=== PATIENT | female | born 1930 | race Caucasian/White ===

== ENCOUNTER 2018-07-27 09:08 | Inpatient (IN) ==
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
[2018-07-27 09:44] LABS: Bilirubin,Urine Negative (Negative); Blood,Urine Moderate (Negative); Clarity,Urine Clear (Clear); Color,Urine Yellow (Yellow); Glucose,Urine (UA) Normal (Normal); Ketones,Urine Negative (Negative); Leukocyte Esterase,Urine Trace (Negative); Nitrite,Urine Negative (Negative); PH,Urine 5.5 pH Units (5.0-8.0); Protein,Urine Negative (Neg-Trace); Urobilinogen,Urine Normal (Normal)
[2018-07-27 09:55] LABS: Basophils # 0.1 K/mcL (0.0-0.2); Basophils % 0.8 %; Eosinophils # 0.1 K/mcL (0.0-0.6); Eosinophils % 1.1 %; Hematocrit 40.8 % (35.3-44.9); Hemoglobin 13.4 g/dL (11.5-15.4); Immature Granulocytes % 0.3 % (0-4); Mean Corpuscular HGB Conc 32.8 g/dL (31.6-35.5); Mean Corpuscular Hemoglobin 30.5 pg (28.0-33.3); Mean Corpuscular Volume 92.7 fL (83.0-100.0); Mean Platelet Volume 9.7 fL (9.4-12.4); Monocytes # 0.5 K/mcL (0.0-1.3); Monocytes % 8.1 %; Neutrophils # 4.8 K/mcL (1.6-8.9); Platelet Count 169 K/mcL (140-400); Red Cell Distribution Width 12.6 % (11.5-14.5); Segmented Neutrophils % 74.7 %
[2018-07-27 09:57] LABS: Bacteria,Urine Moderate per hpf (None-Few); Mucus,Urine Few (Few); RBC,Urine 0-3 per hpf (0-3); Squamous Epithelial Cell,Urine Many per lpf (None-Few)
[2018-07-27 10:02] LABS: Prothrombin Time 11.1 Seconds (9.4-12.1)
[2018-07-27 10:05] LABS: Activated Partial Thrombo Time 32.3 Seconds (26.0-36.0)
[2018-07-27 10:13] LABS: BUN/Creatinine Ratio 23 (6-26); Blood Urea Nitrogen 18 mg/dL (8-23); Carbon Dioxide 29 mEq/L (23-29); Chloride 104 mEq/L (98-107); Glucose 105 mg/dL (70-105); Osmolality,Calculated 292 (280-300); Potassium 3.9 mEq/L (3.5-5.1); Sodium 140 mEq/L (136-145); eGFR For Non-African Americans > 60 (> 60)
[2018-07-27 10:14] LABS: Troponin I < 0.03 ng/mL (< 0.04)
[2018-07-27] MEDS ORDERED: cefTRIAXone 1,000 MG in Water for inj. (sterile) 20 ML 10 ML IVP ONE (10:41)
[2018-07-27] MEDS ORDERED: Naloxone 0.4 MG/ML INJ IVP PRN (13:11)
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
[2018-07-27] MEDS: *HR* LORazepam 0.5 MG TABLET PO PRN (19:16)
[2018-07-27] MEDS ORDERED: traZODone 50 MG TABLET PO STA (20:26)
[2018-07-27] MEDS ORDERED: *HR* LORazepam 0.5 MG TABLET PO SCH (21:00)
[2018-07-28] MEDS: Aspirin Enteric Coated 81 MG Tablet PO SCH (08:59)
[2018-07-28 09:36] LABS: Amphetamine Screen,Urine Negative ng/mL (Cutoff=1000); Barbiturate Screen,Urine Negative ng/mL (Cutoff=200); Benzodiazepines Screen,Urine Negative ng/mL (Cutoff=200); Cannabinoid Screen,Urine Negative ng/mL (Cutoff = 50); Cocaine Screen,Urine Negative ng/mL (Cutoff= 300); Opiate Screen,Urine Negative ng/mL (Cutoff=300); Phencyclidine Screen,Urine Negative ng/mL (Cutoff=25)
--- NOTE | 2018-07-28 14:28 | Internal Med Progress Note ---
Date of Encounter: 07/28/18 Time of Encounter: 14:20 - Assessment and plan (1) Confusion Current Visit: Yes Status: Acute Assessment and plan: July 28. She required Seroquel and trazodone last evening to lessen worsening confusion. (2) Dementia Current Visit: Yes Status: Acute Assessment and plan: July 28. MMSE score of 18/30 consistent with moderate dementia impairment. Will discuss with family the impairment. I recommend essentially 21/05 caregiver/observer be present for her safety. Qualifiers: Dementia type: unspecified type Dementia behavioral disturbance: without behavioral disturbance Qualified Code(s): F03.90 - Unspecified dementia without behavioral disturbance (3) Anxiety Current Visit: Yes Status: Acute Assessment and plan: July 28. Continue Ativan when necessary. (4) Hypertension Current Visit: Yes Status: Chronic Assessment and plan: July 28. Continue Lopressor and monitor blood pressure. Qualifiers: Hypertension type: essential hypertension Qualified Code(s): I10 - Essential (primary) hypertension (5) DJD (degenerative joint disease) Current Visit: Yes Status: Chronic Assessment and plan: July 28. Appears asymptomatic. Qualifiers: Osteoarthritis location: unspecified site Osteoarthritis type: unspecified Qualified Code(s): M19.90 - Unspecified osteoarthritis, unspecified site (6) Irregular heart rate Current Visit: Yes Status: Acute Assessment and plan: July 28. Asymptomatic. She would not leave telemetry in place to monitor further. - Subjective Interval history: July 28. She has no new complaints. - Constitutional Vitals: Temp Pulse Resp BP Pulse Ox 97.5 F L 69 16 108/63 94 07/28/18 10:07 07/28/18 10:07 07/28/18 10:07 07/28/18 10:07 07/28/18 10:07 Exam: She is sitting in a chair in her room visiting with staff. Her affect is bright and cheerful. She is overall coherent but somewhat rambling in conversation. I reviewed her medications and lab results. MMSE score was 18/ 30. Internal Medicine: Result - Labs CBC & Chem 7: 07/27/18 09:45 07/27/18 09:45 - ABG Interpretation ABG results: PT/INR, D-dimer PT 11.1 Seconds (9.4-12.1) 07/27/18 09:45 - VTE Reasons for not Prescribing Prophylaxis: Treatment not Indicated - Low risk for VTE Consult Discharge Plan - Plan Referrals: Reena Mi CNP [Primary Care Provider] - 1 week
[2018-07-28] MEDS ORDERED: Cyanocobalamin (B-12) 1,000 MCG/ML VIAL IM ONE (14:33)
[2018-07-28] MEDS: *HR* LORazepam 0.5 MG TABLET PO PRN (15:27)
[2018-07-29] MEDS: *HR* LORazepam 0.5 MG TABLET PO PRN (01:56)
[2018-07-29] MEDS ORDERED: Haloperidol Lactate 5 MG/ML VIAL IM ONE (02:16)
[2018-07-29] MEDS ORDERED: Haloperidol Lactate 5 MG/ML VIAL ONE (02:21)
[2018-07-29] MEDS: Aspirin Enteric Coated 81 MG Tablet PO SCH (09:25)
[2018-07-29] MEDS: *HR* Enoxaparin 40 MG/0.4 ML SYRINGE SQ SCH (09:25)
--- NOTE | 2018-07-29 15:12 | Electrocardiograph Report ---
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
--- NOTE | 2018-07-29 15:16 | Internal Med Progress Note ---
Date of Encounter: 07/29/18 Time of Encounter: 15:05 - Assessment and plan (1) Confusion Current Visit: Yes Status: Acute Assessment and plan: July 28. She required Seroquel and trazodone last evening to lessen worsening confusion. (2) Dementia Current Visit: Yes Status: Acute Assessment and plan: July 28. MMSE score of 18/30 consistent with moderate dementia impairment. Will discuss with family the impairment. I recommend essentially 21/05 caregiver/observer be present for her safety. July 29. B12 level returned low at 234. She received B12 injection IM yesterday. Will start oral B12 supplement also. guest services has visited with patient's family and informed them that SNF placement is needed because of cognitive impairment. Qualifiers: Dementia type: unspecified type Dementia behavioral disturbance: without behavioral disturbance Qualified Code(s): F03.90 - Unspecified dementia without behavioral disturbance (3) Anxiety Current Visit: Yes Status: Acute Assessment and plan: July 28. Continue Ativan when necessary. (4) Hypertension Current Visit: Yes Status: Chronic Assessment and plan: July 28. Continue Lopressor and monitor blood pressure. Qualifiers: Hypertension type: essential hypertension Qualified Code(s): I10 - Essential (primary) hypertension (5) DJD (degenerative joint disease) Current Visit: Yes Status: Chronic Assessment and plan: July 28. Appears asymptomatic. Qualifiers: Osteoarthritis location: unspecified site Osteoarthritis type: unspecified Qualified Code(s): M19.90 - Unspecified osteoarthritis, unspecified site (6) Irregular heart rate Current Visit: Yes Status: Acute Assessment and plan: July 28. Asymptomatic. She would not leave telemetry in place to monitor further. (7) Low vitamin B12 level Current Visit: Yes Status: Acute Assessment and plan: July 29. As above - Subjective Interval history: July 28. She has no new complaints. July 29. She has no new complaints. She denies pain or dyspnea. - Constitutional Vitals: Temp Pulse Resp BP Pulse Ox 97.6 F 87 16 109/67 98 07/28/18 21:55 07/28/18 21:55 07/28/18 21:55 07/28/18 21:55 07/28/18 21:55 Exam: She is resting comfortably in bed and appears in no acute distress. Her affect is bright and cheerful. Heart is irregular and likely AF. Lungs are clear. I reviewed her medications and lab results. Internal Medicine: Result - Labs CBC & Chem 7: 07/27/18 09:45 07/27/18 09:45 - ABG Interpretation ABG results: PT/INR, D-dimer PT 11.1 Seconds (9.4-12.1) 07/27/18 09:45 - VTE Reasons for not Prescribing Prophylaxis: Treatment not Indicated - Low risk for VTE Consult Discharge Plan - Plan Referrals: Reena Mi, ASTROCHEMIST [Primary Care Provider] - 1 week
[2018-07-30] MEDS: *HR* Enoxaparin 40 MG/0.4 ML SYRINGE SQ SCH (06:12)
[2018-07-30] MEDS: Aspirin Enteric Coated 81 MG Tablet PO SCH (07:55)
[2018-07-30] MEDS: *HR* LORazepam 0.5 MG TABLET PO PRN ×2 (13:32→21:32)
--- NOTE | 2018-07-30 19:34 | Internal Med Progress Note ---
Date of Encounter: 07/30/18 Time of Encounter: 19:28 - Assessment and plan (1) Confusion Current Visit: Yes Status: Acute Assessment and plan: July 28. She required Seroquel and trazodone last evening to lessen worsening confusion. (2) Dementia Current Visit: Yes Status: Acute Assessment and plan: July 28. MMSE score of 18/30 consistent with moderate dementia impairment. Will discuss with family the impairment. I recommend essentially 21/05 caregiver/observer be present for her safety. July 29. B12 level returned low at 234. She received B12 injection IM yesterday. Will start oral B12 supplement also. director of radio services has visited with patient's family and informed them that SNF placement is needed because of cognitive impairment. July 30. She has been accepted to [facility]. Anticipate discharge tomorrow. Qualifiers: Dementia type: unspecified type Dementia behavioral disturbance: without behavioral disturbance Qualified Code(s): F03.90 - Unspecified dementia without behavioral disturbance (3) Anxiety Current Visit: Yes Status: Acute Assessment and plan: July 28. Continue Ativan when necessary. (4) Hypertension Current Visit: Yes Status: Chronic Assessment and plan: July 28. Continue Lopressor and monitor blood pressure. July 30. Blood pressure suboptimally controlled. Will increase metoprolol. Qualifiers: Hypertension type: essential hypertension Qualified Code(s): I10 - Essential (primary) hypertension (5) DJD (degenerative joint disease) Current Visit: Yes Status: Chronic Assessment and plan: July 28. Appears asymptomatic. Qualifiers: Osteoarthritis location: unspecified site Osteoarthritis type: unspecified Qualified Code(s): M19.90 - Unspecified osteoarthritis, unspecified site (6) Irregular heart rate Current Visit: Yes Status: Acute Assessment and plan: July 28. Asymptomatic. She would not leave telemetry in place to monitor further. (7) Low vitamin B12 level Current Visit: Yes Status: Acute Assessment and plan: July 29. As above - Subjective Interval history: July 28. She has no new complaints. July 29. She has no new complaints. She denies pain or dyspnea. July 30. She has no new complaints. - Constitutional Vitals: Temp Pulse Resp BP Pulse Ox 97.2 F L 124 18 136/88 97 07/30/18 19:02 07/30/18 19:02 07/30/18 19:02 07/30/18 19:02 07/30/18 19:02 Exam: She is sitting comfortably in a chair at bedside folding towels as a diversion activity. Her affect is cheerful. I reviewed her medications, vitals, and lab results. Internal Medicine: Result - Labs CBC & Chem 7: 07/27/18 09:45 07/27/18 09:45 - ABG Interpretation ABG results: PT/INR, D-dimer PT 11.1 Seconds (9.4-12.1) 07/27/18 09:45 - VTE Reasons for not Prescribing Prophylaxis: Treatment not Indicated - Low risk for VTE Consult Discharge Plan - Plan Referrals: Reena Mi, CYCLE CONSULTANT [Primary Care Provider] - 1 week
[2018-07-30] MEDS: Metoprolol XL (24 HR) Succ 50 MG TAB.ER.24H PO SCH (19:58)
[2018-07-31] MEDS: *HR* LORazepam 0.5 MG TABLET PO PRN (07:35)
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
--- NOTE | 2018-07-31 09:56 | Physician Discharge Referral ---
ExtendedCare Referral Info Transfer To: [facility] Provider in Charge: Jasiel Provider in Charge after Transfer: PCP (Jasiel) - Diagnosis (1) Confusion Priority: Primary Status: Acute (2) Dementia Priority: Secondary Status: Acute (3) Anxiety Priority: Secondary Status: Acute (4) Hypertension Priority: Secondary Status: Chronic (5) DJD (degenerative joint disease) Priority: Secondary Status: Chronic (6) Irregular heart rate Priority: Secondary Status: Acute (7) Low vitamin B12 level Priority: Secondary Status: Acute Prognosis: Fair Aware of Diagnosis: Family Aware of Prognosis: Family - Transfer Medications Prescriptions: Cyanocobalamin (B-12) [Vitamin B12] 1,000 mcg PO DAILY 365 Days tablet LORazepam [Ativan] 0.5 mg PO BID 30 Days #60 tablet Home Medications: Aspirin [Lo-Dose Aspirin EC] 81 mg PO DAILY 07/27/18 [History] Omeprazole [PriLOSEC] 40 mg PO DAILY 07/27/18 [History] Cyanocobalamin (B-12) [Vitamin B12] 1,000 mcg PO DAILY 365 Days tablet [Rx] LORazepam [Ativan] 0.5 mg PO BID 30 Days #60 tablet 07/31/18 [Rx] Metoprolol XL (24 HR) Succ [Toprol Xl] 50 mg PO DAILY tab.er.24h 07/31/18 [Rx] Allergies/Adverse Reactions: 3 Allergy/AdvReac Type Severity Reaction Status Date / Time nitrofurantoin Allergy Hives Verified 07/02/18 18:25 [From Macrobid] - Respiratory Orders Smoking Cessation: Smoking cessation has been advised. For more information, call the [place] Tobacco Quit Line at 2-915-BCTN-NOW. - Advance Directives Code Status: Full Code - Mobility Orders Ambulate - Rehabiliation Orders Rehab Potential: Fair Rehab Orders: Evaluation for Physical Therapy, Evaluation for Occupational Therapy - Diet Orders Regular CERTIFICATION: I certify that the transfer of the above named patient to an Extended Care Facility is necessary for the continuing treatment of the diagnosis listed. The above information is true and accurate reflection of patient's current condition. Confidential - Redisclosure prohibited without a patient's written consent.
[2018-07-31] MEDS: *HR* Enoxaparin 40 MG/0.4 ML SYRINGE SQ SCH (12:32)
[2018-07-31 12:52] VITALS: BP 113/67
[2018-07-31] MEDS: Metoprolol XL (24 HR) Succ 50 MG TAB.ER.24H PO SCH (12:53)
[2018-07-31] MEDS: Aspirin Enteric Coated 81 MG Tablet PO SCH (12:53)
== END 2018-07-31 13:44 | DRG 884 ==
LOC: INPPIK 09:08 → EMEROOPIK 09:08 → INPPIK 14:02
PROVIDERS: ADMIT Internal Medicine; ATTEND Internal Medicine

== ENCOUNTER 2018-09-08 14:28 | Observation (INO) ==
--- NOTE | 2018-09-08 14:45 | Emergency Department Note ---
Disposition Clinical Impression: Chest pain Qualifiers: Chest pain type: unspecified Qualified Code(s): R07.9 - Chest pain, unspecified Disposition: Admitted As Inpatient Condition: Good Instructions: Chest Pain (ED) Time of Disposition: 16:15 (Dr Sandoval accepted the pt for serial trop and car diopulmonary monitoring) Weakness HPI - General Chief complaint: ED General Medical Stated complaint: epigastric pain Time Seen by Provider: 09/08/18 14:45 Source: EMS Limitations: no limitations Nursing Notes Reviewed: Yes Vital Signs Reviewed: Yes - History of Present Illness HPI Narrative: Patient is a pleasant 88 yo F with past medical history significant for HTN and dementia who is presenting to [facility] Emergency Room with a chief complaint off right side chest pain. She intially presented with abd pain at the SNF as wel as confusion but upon admission she pointed to her right side states pain was severe that she couldnt walk. She is currently comfortable and laying in bed with no NC or any discpomfort. Her daughter states that she was cleared from any cardiac problems last year at [facility]. Patient denies any fever, chills or night sweats. Pt also denies any eye pain or visual disturbances. There is no sore throat, nasal drainages or facial congestion. There is no palpitations or racing heart. Pt also denies any shortness of breath, cough or chest congestion. There is no abdominal pain, nausea, vomiting or diarrhea. There is no urgency, frequency or dysuria. There is no muskulo-skeletal pain, arthralgia or back pain. Patient also denies any rash, edema or pruritus. There is no neurological manifestations, no headache, no vertigo or weakness. The patient also denies any anxiety, depression, hallucinations and has no homicidal or suicidal ideations. There is no polyuria, polydipsia or recent weight change. There is no easy bruising or bleeding. Review of other systems is otherwise negative except above. 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 Duration: intermittent, now resolved Pain Scale: 0 - Related Data Home Medications Medication Instructions Recorded Confirmed Aspirin [Lo-Dose Aspirin EC] 81 mg PO DAILY 07/27/18 09/08/18 Omeprazole [PriLOSEC] 40 mg PO DAILY 07/27/18 09/08/18 Donepezil [Aricept] 5 mg PO HS 08/17/18 09/08/18 Memantine [Namenda] 5 mg PO HS 08/17/18 09/08/18 Cyanocobalamin/Folic Acid [Vitamin 09/08/18 Y55-Atocm Acid Tablet] Sertraline [Zoloft] 25 mg PO DAILY 09/08/18 09/08/18 Previous Rx's Medication Instructions Recorded LORazepam [Ativan] 0.5 mg PO BID 30 Days #60 tablet 07/31/18 Metoprolol XL (24 HR) Succ [Toprol 50 mg PO DAILY tab.er.24h 07/31/18 Xl] Metoprolol Succinate 100 mg PO DAILY #30 tab.er.24h 08/17/18 Allergies Allergy/AdvReac Type Severity Reaction Status Date / Time nitrofurantoin Allergy Hives Verified 08/17/18 16:21 [From Macrobid] All systems ED: reviewed and negative except as stated. Review of Systems: As Per HPI Constitutional: Denies: fever, chills, weakness, weight change Eyes: Denies: eye pain, eye discharge, vision change ENT ED: Denies: ear pain, throat pain, dental pain, hearing loss, epistaxis, congestion, dysphagia Cardiovascular: Reports: chest pain. Denies: palpitations, dyspnea on exertion, edema, syncope Respiratory: Denies: cough, dyspnea, wheezes, hemoptysis, stridor Gastrointestinal: Denies: abdominal pain, nausea, vomiting, diarrhea, constipation, hematemesis, melena, hematochezia Genitourinary: Denies: dysuria, frequency, hematuria, discharge Musculoskeletal: Denies: back pain, neck pain, arthralgia, myalgia Integumentary: Denies: rash, abrasion, lesions Neurological: Denies: headache, weakness, numbness, paresthesias, confusion, abnormal gait, vertigo Psychiatric: Denies: anxiety, depression, suicidal thoughts, homicidal thoughts, auditory hallucinations, visual hallucinations Endocrine: Denies: fatigue Hematological/Lymphatic: Denies: easy bleeding, easy bruising Allergic/Immunologic: Denies: facial swelling, urticaria Past Medical History - Past Medical History Medical history: Reports: dementia, GERD, hypertension, other Surgical history: Reports: hysterectomy Psychiatric history: Reports: anxiety, depression COMPLIANCE INVESTIGATOR history: Reports: no COMPLIANCE INVESTIGATOR history - Social History Smoking Status: Never smoker Smokeless Tobacco Status: No Alcohol use: Reports: none Drug use: Reports: none Physical Exam - General Limitations: no limitations General appearance: alert, in no apparent distress - Head Head exam: atraumatic, normocephalic, normal inspection - Eye Eye exam: Present: normal appearance, PERRL, EOMI - Expanded Eye Exam Pupils: Left: reactive - ENT ENT exam: normal exam, normal oropharynx, mucous membranes moist - Expanded ENT Exam External ear exam: Present: normal external inspection Mouth exam: Present: normal external inspection Teeth exam: Present: normal inspection Throat exam: Present: normal inspection - Neck Neck exam: Present: normal inspection, full ROM, trachea midline - Chest Chest inspection: Present: normal inspection, symmetric chest wall rise - Respiratory Respiratory exam: Present: normal lung sounds bilaterally - Cardiovascular Cardiovascular exam: Present: regular rate, normal rhythm, normal heart sounds - Abdominal Exam Abdominal exam: Present: soft, Non-Tender. Absent: tenderness, distention, guarding, rebound, rigidity - Extremities Exam Extremities exam: Present: normal inspection, full ROM. Absent: tenderness, pedal edema - Expanded Upper Extremity Exam Shoulder exam: Present: normal inspection, full ROM Arm exam: Present: normal inspection, full ROM Elbow exam: Present: normal inspection, full ROM Forearm/Wrist exam: Present: normal inspection, full ROM Hand exam: Present: normal inspection, full ROM Vascular exam: Normal: capillary refill, radial pulse - Expanded Lower Extremity Exam Hip/Pelvis exam: Present: normal inspection, full ROM Upper leg exam: Present: normal inspection, full ROM Knee exam: Present: normal inspection, full ROM Lower leg exam: Present: normal inspection, full ROM Ankle exam: Present: normal inspection, full ROM Foot/toe exam: Present: normal inspection, full ROM Neurovascular/Tendon exam: Absent: motor deficit, sensory deficit, tendon deficit - Back Exam Back exam: Present: normal inspection, full ROM. Absent: tenderness - Neurological Exam Neurological exam: Present: alert, oriented X3 - Expanded Neurological Exam Patient oriented to: Present: person, place, time Coma Scale Eye Opening: Spontaneous Coma Scale Motor Response: Obeys Commands Coma Scale Verbal Response: Oriented Coma Scale Total: 15 - Psychiatric Psychiatric exam: Present: normal affect, normal mood - Skin Skin exam: Present: warm, dry, intact, normal color Course Vital Signs Temperature 99.0 F 09/08/18 14:30 Pulse Rate 81 09/08/18 14:30 Respiratory Rate 20 09/08/18 14:30 Blood Pressure 137/80 09/08/18 14:30 O2 Sat by Pulse Oximetry 97 09/08/18 14:30 Temperature 99.0 F 09/08/18 14:30 Pulse Rate 66 09/08/18 15:52 Respiratory Rate 18 09/08/18 15:52 Blood Pressure 98/56 09/08/18 15:52 O2 Sat by Pulse Oximetry 96 09/08/18 15:52 Oxygen Delivery Oxygen Delivery Room Air Weakness - Differential Diagnosis Differential Diagnosis: Likely: acute myocardial infarction, sepsis/infection, dehydration - Medical Records Medical records reviewed: Yes I reviewed the patient's medical records. - Lab Data Lab results reviewed: Yes I reviewed the patient's lab results. Result diagrams: 09/08/18 15:00 09/08/18 15:00 Lab Results 09/08/18 09/08/18 09/08/18 Range/Units 15:00 15:00 15:00 WBC 6.4 (4.3-11.1) K/mcL RBC 3.96 (3.82-4.97) M/mcL Hgb 12.0 (11.5-15.4) g/dL Hct 37.5 (35.3-44.9) % MCV 94.7 (83.0-100.0) fL MCH 30.3 (28.0-33.3) pg MCHC 32.0 (31.6-35.5) g/dL RDW 13.2 (11.5-14.5) % Plt Count 169 (140-400) K/mcL MPV 9.6 (9.4-12.4) fL Immature Gran % 0.5 (0-4) % Seg Neutrophils % 64.5 % Lymphocytes % 21.2 % Monocytes % 10.8 % Eosinophils % 1.9 % Basophils % 1.1 % Neutrophils # 4.1 (1.6-8.9) K/mcL Lymphocytes # 1.4 (0.6-4.6) K/mcL Monocytes # 0.7 (0.0-1.3) K/mcL Eosinophils # 0.1 (0.0-0.6) K/mcL Basophils # 0.1 (0.0-0.2) K/mcL PT 10.4 (9.4-12.1) Seconds INR 0.9 APTT 30.6 (26.0-36.0) Seconds Sodium 136 (136-145) mEq/L Potassium 4.3 (3.5-5.1) mEq/L Chloride 103 (98-107) mEq/L Carbon Dioxide 28 (23-29) mEq/L BUN 25 H (8-23) mg/dL Creatinine 1.10 (0.60-1.20) mg/dL Est GFR ( Amer) 57 L (> 60) Est GFR (Non-Af Amer) 47 L (> 60) BUN/Creatinine Ratio 23 (6-26) Glucose 129 H (70-105) mg/dL Calculated Osmolality 288 (280-300) Lactic Acid (0.5-2.2) mmol/L Calcium 8.4 L (8.6-10.3) mg/dL Total Bilirubin 0.3 (0.3-1.0) mg/dL Direct Bilirubin 0.0 (0.0-0.2) mg/dL Indirect Bilirubin 0.3 (0.0-1.2) mg/dL AST 15 (13-39) Units/L ALT 8 (7-52) Units/L Alkaline Phosphatase 56 (34-104) Units/L Troponin I < 0.03 (< 0.04) ng/mL Serum Total Protein 6.1 L (6.4-8.9) g/dL Albumin 3.4 L (3.5-5.7) g/dL Globulin 2.7 (2.4-3.5) g/dL Albumin/Globulin Ratio 1.3 (1.1-2.2) Amylase 76 (29-103) Units/L Lipase 92 H (11-82) Units/L Urine Color (Yellow) Urine Clarity (Clear) Urine pH (5.0-8.0) pH Units Ur Specific Ransom (1.010-1.025) Urine Protein (Neg-Trace) mg/dL Urine Glucose (UA) (Normal) mg/dL Urine Ketones (Negative) mg/dL Urine Blood (Negative) Urine Nitrite (Negative) Urine Bilirubin (Negative) Urine Urobilinogen (Normal) mg/dL Ur Leukocyte Esterase (Negative) 09/08/18 09/08/18 Range/Units 15:00 16:02 WBC (4.3-11.1) K/mcL RBC (3.82-4.97) M/mcL Hgb (11.5-15.4) g/dL Hct (35.3-44.9) % MCV (83.0-100.0) fL MCH (28.0-33.3) pg MCHC (31.6-35.5) g/dL RDW (11.5-14.5) % Plt Count (140-400) K/mcL MPV (9.4-12.4) fL Immature Gran % (0-4) % Seg Neutrophils % % Lymphocytes % % Monocytes % % Eosinophils % % Basophils % % Neutrophils # (1.6-8.9) K/mcL Lymphocytes # (0.6-4.6) K/mcL Monocytes # (0.0-1.3) K/mcL Eosinophils # (0.0-0.6) K/mcL Basophils # (0.0-0.2) K/mcL PT (9.4-12.1) Seconds INR APTT (26.0-36.0) Seconds Sodium (136-145) mEq/L Potassium (3.5-5.1) mEq/L Chloride (98-107) mEq/L Carbon Dioxide (23-29) mEq/L BUN (8-23) mg/dL Creatinine (0.60-1.20) mg/dL Est GFR ( Amer) (> 60) Est GFR (Non-Af Amer) (> 60) BUN/Creatinine Ratio (6-26) Glucose (70-105) mg/dL Calculated Osmolality (280-300) Lactic Acid 1.3 (0.5-2.2) mmol/L Calcium (8.6-10.3) mg/dL Total Bilirubin (0.3-1.0) mg/dL Direct Bilirubin (0.0-0.2) mg/dL Indirect Bilirubin (0.0-1.2) mg/dL AST (13-39) Units/L ALT (7-52) Units/L Alkaline Phosphatase (34-104) Units/L Troponin I (< 0.04) ng/mL Serum Total Protein (6.4-8.9) g/dL Albumin (3.5-5.7) g/dL Globulin (2.4-3.5) g/dL Albumin/Globulin Ratio (1.1-2.2) Amylase (29-103) Units/L Lipase (11-82) Units/L Urine Color Yellow (Yellow) Urine Clarity Clear (Clear) Urine pH 5.5 (5.0-8.0) pH Units Ur Specific Ransom 1.025 (1.010-1.025) Urine Protein Negative (Neg-Trace) mg/dL Urine Glucose (UA) Normal (Normal) mg/dL Urine Ketones Negative (Negative) mg/dL Urine Blood Trace-intact H (Negative) Urine Nitrite Negative (Negative) Urine Bilirubin Negative (Negative) Urine Urobilinogen Normal (Normal) mg/dL Ur Leukocyte Esterase Negative (Negative) - Radiology Data Radiology results reviewed: Yes I reviewed the patient's radiology results. - EKG Data EKG attestation: Yes I reviewed and interpreted this EKG. EKG shows normal: sinus rhythm Rate: normal Rhythm: NSR
[2018-09-08 15:07] LABS: Basophils # 0.1 K/mcL (0.0-0.2); Basophils % 1.1 %; Eosinophils # 0.1 K/mcL (0.0-0.6); Eosinophils % 1.9 %; Hematocrit 37.5 % (35.3-44.9); Immature Granulocytes % 0.5 % (0-4); Lymphocytes # 1.4 K/mcL (0.6-4.6); Lymphocytes % 21.2 %; Mean Corpuscular Hemoglobin 30.3 pg (28.0-33.3); Mean Corpuscular Volume 94.7 fL (83.0-100.0); Mean Platelet Volume 9.6 fL (9.4-12.4); Monocytes # 0.7 K/mcL (0.0-1.3); Monocytes % 10.8 %; Neutrophils # 4.1 K/mcL (1.6-8.9); Platelet Count 169 K/mcL (140-400); Red Blood Count 3.96 M/mcL (3.82-4.97); Red Cell Distribution Width 13.2 % (11.5-14.5); Segmented Neutrophils % 64.5 %
[2018-09-08 15:15] LABS: INR 0.9; Prothrombin Time 10.4 Seconds (9.4-12.1)
[2018-09-08 15:17] LABS: Activated Partial Thrombo Time 30.6 Seconds (26.0-36.0)
[2018-09-08 15:26] LABS: Alanine Aminotransferase 8 Units/L (7-52); Albumin 3.4 g/dL (3.5-5.7); Albumin/Globulin Ratio 1.3 (1.1-2.2); Alkaline Phosphatase 56 Units/L (34-104); Amylase 76 Units/L (29-103); Aspartate Amino Transferase 15 Units/L (13-39); BUN/Creatinine Ratio 23 (6-26); Bilirubin,Indirect 0.3 mg/dL (0.0-1.2); Bilirubin,Total 0.3 mg/dL (0.3-1.0); Blood Urea Nitrogen 25 mg/dL (8-23); Calcium 8.4 mg/dL (8.6-10.3); Carbon Dioxide 28 mEq/L (23-29); Chloride 103 mEq/L (98-107); Globulin 2.7 g/dL (2.4-3.5); Glucose 129 mg/dL (70-105); Lipase 92 Units/L (11-82); Osmolality,Calculated 288 (280-300); Potassium 4.3 mEq/L (3.5-5.1); Sodium 136 mEq/L (136-145); Total Protein 6.1 g/dL (6.4-8.9); Troponin I < 0.03 ng/mL (< 0.04); eGFR For Non-African Americans 47 (> 60)
[2018-09-08 16:11] LABS: Bilirubin,Urine Negative (Negative); Blood,Urine Trace-intact (Negative); Clarity,Urine Clear (Clear); Color,Urine Yellow (Yellow); Glucose,Urine (UA) Normal (Normal); Ketones,Urine Negative (Negative); Leukocyte Esterase,Urine Negative (Negative); Nitrite,Urine Negative (Negative); PH,Urine 5.5 pH Units (5.0-8.0); Protein,Urine Negative (Neg-Trace); Specific Gravity,Urine 1.025 (1.010-1.025); Urobilinogen,Urine Normal (Normal)
[2018-09-08 16:20] LABS: Bacteria,Urine Few per hpf (None-Few); Mucus,Urine Few (Few); RBC,Urine 0-3 per hpf (0-3); Squamous Epithelial Cell,Urine Few per lpf (None-Few); WBC,Urine 0-3 per hpf (0-3); Yeast,Urine Few per hpf (None Seen)
[2018-09-08] MEDS ORDERED: Naloxone 0.4 MG/ML INJ IVP PRN (16:21)
[2018-09-08] MEDS ORDERED: Aspirin 81 MG TAB.CHEW PO ONE (16:23)
--- NOTE | 2018-09-08 19:16 | Internal Med History&Physical ---
Date of Encounter: 09/08/18 Time of Encounter: 18:55 Assessment and Plan (1) Chest pain Current visit: Yes Status: Acute Repeat cardiac enzymes were ordered through emergency room. Qualifiers: Chest pain type: unspecified Qualified Code(s): R07.9 - Chest pain, unspecified (2) Anxiety Current visit: No Status: Acute Continue Ativan. (3) Dementia Current visit: No Status: Acute Continue Aricept, Namenda, and B12. Qualifiers: Dementia type: Alzheimer's disease Alzheimer's disease onset: unspecified onset Dementia behavioral disturbance: without behavioral disturbance Qualified Code(s): G30.9 - Alzheimer's disease, unspecified; F02.80 - Dementia in other diseases classified elsewhere without behavioral disturbance (4) Hypertension Current visit: No Status: Chronic Continue Toprol Qualifiers: Hypertension type: essential hypertension Qualified Code(s): I10 - Essential (primary) hypertension (5) Low vitamin B12 level Current visit: No Status: Acute Continue B12 supplement. Internal Medicine - H&P: HPI Chief complaint: Chest discomfort Admitted From: Emergency Dept Plans for Post Hospital Care: Transfer [facility] History of present illness: Ms. Ronquillo is a 88 year old female who was sent from a local SNF for e valuation after she complained of chest pain. She is a limited historian but states the pain felt like a burning sensation. She denies dyspnea or cough. She was evaluated in emergency room and admitted to [facility] floor for ongoing care needs. She is uncertain if she has had previous similar pain. She has history of hypertension but denies NC heart failure angina DVT or pulmonary embolus. Past Med Surg Social Fam HX - Past Medical History Medical history: dementia, GERD, hypertension, other Additional medical history: anemia. [place] Palsy. Tachycardia. malignant neoplasm Psychiatric history: anxiety, depression - Past Surgical History Surgical History: hysterectomy - Social History Smoking Status: Never smoker Smokeless Tobacco Status: No Alcohol use: none Drug use: none - Family History Mother History Unknown: Yes Internal Medicine - H&P: Meds Aspirin [Lo-Dose Aspirin EC] 81 mg PO DAILY 07/27/18 [History] Omeprazole [PriLOSEC] 40 mg PO DAILY 07/27/18 [History] LORazepam [Ativan] 0.5 mg PO BID 30 Days #60 tablet 07/31/18 [Rx] Metoprolol XL (24 HR) Succ [Toprol Xl] 50 mg PO DAILY tab.er.24h 07/31/18 [Rx] Donepezil [Aricept] 5 mg PO HS 08/17/18 [History] Memantine [Namenda] 5 mg PO HS 08/17/18 [History] Metoprolol Succinate 100 mg PO DAILY #30 tab.er.24h 08/17/18 [Rx] Cyanocobalamin/Folic Acid [Vitamin E97-Vzven Acid Tablet] 09/08/18 [History] Sertraline [Zoloft] 25 mg PO DAILY 09/08/18 [History] Allergy/AdvReac Type Severity Reaction Status Date / Time nitrofurantoin Allergy Hives Verified 08/17/18 16:21 [From Macrobid] All Systems PM: A 10-system review of systems was performed and is negative for pertinent findings except as documented above in the HPI. Review of systems: Review of systems from her June 2018 [facility] hospitalization were reviewed and revised as below. Gen.: Her weight has increased slightly from 50.4 kg on 07/31/2018 to 53.524 kg at present. Cardiovascular: As per history of present illness Respiratory: She is a lifelong nonsmoker and has no known chronic lung disease GI: She denies disorders of her liver gallbladder or exocrine pancreas : She has had multiple UTIs. She denies any kidney stones or other problems Neurologic: She has not had large disposition strokes or seizures. 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 She has diagnosis of dementia with MMSE score during her last [facility] hospitalization of . 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 There has been no other known malignancies or anemia Psychiatric: She has anxiety and depression. [place] skeletal: She denies arthritis gout or other bone joint or muscle disorders. - Constitutional Vitals: Temp Pulse Resp BP Pulse Ox 97.6 F 62 14 112/76 96 09/08/18 17:44 09/08/18 17:44 09/08/18 17:44 09/08/18 17:44 09/08/18 17:44 Exam: Gen.: She is a well-developed lean female resting comfortably in bed who appears in no acute distress. She denies pain at present time. HEENT: Head is atraumatic and normocephalic. Eyes: EOMI. There is no scleral icterus. Mouth: Mucosa is moist. Neck: Supple and nontender. There is no thyromegaly or adenopathy noted. Heart: Regular with occasional asymptomatic ectopic beat. Lungs: No wheezes or crackles are heard. Chest: She is nontender in her chest wall to palpation. Abdomen: Soft and nontender. No masses or guarding are noted. Extremities: There is no cyanosis edema or clubbing noted. Dorsalis pedis and posttibial pulses are trace palpable bilaterally. Her feet are warm to touch. She has significant DJD changes of her hands. Neurologic: Mental status: She is talkative but a fair historian at best. She does not remember many details of her history. She does not know her age or her present location. Cranial nerves: Smile is symmetric. Forehead wrinkles bilaterally. Tongue protrudes midline. EOMI. Motor: There is no pronator drift. Cerebellar: Finger to nose is intact bilaterally. Skin: Warm and dry Internal Med - H&P Results - Labs CBC & Chem 7: 09/08/18 15:00 09/08/18 15:00 Labs: Short CBC 09/08/18 Range/Units 15:00 WBC 6.4 (4.3-11.1) K/mcL Hgb 12.0 (11.5-15.4) g/dL Hct 37.5 (35.3-44.9) % Plt Count 169 (140-400) K/mcL Neutrophils # 4.1 (1.6-8.9) K/mcL BMP 09/08/18 15:00 Sodium 136 Potassium 4.3 Chloride 103 Carbon Dioxide 28 BUN 25 H Creatinine 1.10 Glucose 129 H Calcium 8.4 L Cardiac Enzymes 09/08/18 Range/Units 15:00 Troponin I < 0.03 (< 0.04) ng/mL Liver Function 09/08/18 Range/Units 15:00 Total Bilirubin 0.3 (0.3-1.0) mg/dL Direct Bilirubin 0.0 (0.0-0.2) mg/dL AST 15 (13-39) Units/L ALT 8 (7-52) Units/L Alkaline Phosphatase 56 (34-104) Units/L Albumin 3.4 L (3.5-5.7) g/dL Urine 09/08/18 Range/Units 16:02 Urine Color Yellow (Yellow) Urine Clarity Clear (Clear) Urine pH 5.5 (5.0-8.0) pH Units Ur Specific Brice 1.025 (1.010-1.025) Urine Protein Negative (Neg-Trace) mg/dL Urine Glucose (UA) Normal (Normal) mg/dL - Impressions ITS Impressions Chest X-Ray 09/08/18 16:33 IMPRESSION: No acute process. Stable COPD changes D/ / Abhinav Flower MD / Abhinav Flower MD Interpreting Provider: Abhinav Flower MD
[2018-09-08] MEDS ORDERED: *HR* LORazepam 0.5 MG TABLET PO SCH (21:00)
[2018-09-09 03:57] LABS: Hematocrit 36.4 % (35.3-44.9); Hemoglobin 11.6 g/dL (11.5-15.4); Mean Corpuscular HGB Conc 31.9 g/dL (31.6-35.5); Mean Corpuscular Hemoglobin 30.2 pg (28.0-33.3); Mean Corpuscular Volume 94.8 fL (83.0-100.0); Platelet Count 158 K/mcL (140-400); Red Blood Count 3.84 M/mcL (3.82-4.97); Red Cell Distribution Width 13.1 % (11.5-14.5)
[2018-09-09 04:13] LABS: BUN/Creatinine Ratio 31 (6-26); Blood Urea Nitrogen 26 mg/dL (8-23); Calcium 8.1 mg/dL (8.6-10.3); Carbon Dioxide 28 mEq/L (23-29); Chloride 105 mEq/L (98-107); Chol/HDL Ratio 3.5 (0-4.9); Cholesterol 183 mg/dL (< 200); Glucose 96 mg/dL (70-105); HDL Cholesterol 52 mg/dL (40-59); LDL Cholesterol,Calculated 116 mg/dL (0-99); Magnesium 2.1 mg/dL (1.6-2.6); Osmolality,Calculated 293 (280-300); Phosphorous 3.7 mg/dL (2.7-4.5); Potassium 4.3 mEq/L (3.5-5.1); Sodium 139 mEq/L (136-145); Triglycerides 73 mg/dL (< 150); eGFR For Non-African Americans > 60 (> 60)
[2018-09-09 07:06] VITALS: BP 137/91
--- NOTE | 2018-09-09 08:32 | Discharge Summary ---
Orders not resulted at time of discharge: Pending orders 09/09/18 01:36 EKG [ECG 12 lead ECG] [ECG] Stat 09/09/18 09:00 Troponin I Q6H Date of Encounter: 09/09/18 Time of Encounter: 08:20 - Discharge Diagnosis (1) Chest pain Priority: Primary Status: Resolved Qualifiers: Chest pain type: unspecified Qualified Code(s): R07.9 - Chest pain, unspecified (2) Anxiety Priority: Secondary Status: Acute (3) Dementia Priority: Secondary Status: Chronic Qualifiers: Dementia type: Alzheimer's disease Alzheimer's disease onset: unspecified onset Dementia behavioral disturbance: without behavioral disturbance Qualified Code(s): G30.9 - Alzheimer's disease, unspecified; F02.80 - Dementia in other diseases classified elsewhere without behavioral disturbance (4) Hypertension Priority: Secondary Status: Chronic Qualifiers: Hypertension type: essential hypertension Qualified Code(s): I10 - Essential (primary) hypertension (5) Low vitamin B12 level Priority: Secondary Status: Chronic Hospital course: Ms. Ronquillo is a 88 year old female who was sent from a local SNF for evaluation after she complained of chest pain. She is a limited historian but states the pain felt like a burning sensation. She denies dyspnea or cough. She was evaluated in emergency room and admitted to [facility] for ongoing care needs. Initial orders were written by the emergency room physician. I saw her on September 08 and performed a history and physical. By the time I saw her she stated her chest pain had resolved. Repeat cardiac enzymes show no evidence of myocardial damage. She had no further complaints of chest pain. On September 09 she was stable for discharge back to [facility] where she will follow with me. - Time Spent with Patient Total time spent providing and/or coordinating discharge services: - Discharge Medications Home Medications: Aspirin [Lo-Dose Aspirin EC] 81 mg PO DAILY 07/27/18 [History] LORazepam [Ativan] 0.5 mg PO BID 30 Days #60 tablet 07/31/18 [Rx] Metoprolol XL (24 HR) Succ [Toprol Xl] 50 mg PO DAILY tab.er.24h 07/31/18 [Rx] Metoprolol Succinate 100 mg PO DAILY #30 tab.er.24h 08/17/18 [Rx] Cyanocobalamin/Folic Acid [Vitamin Z58-Qrnxt Acid Tablet] 09/08/18 [History] Sertraline [Zoloft] 25 mg PO DAILY 09/08/18 [History] Donepezil [Aricept] 10 mg PO HS #0 09/09/18 [Rx] Memantine [Namenda] 5 mg PO BID #0 09/09/18 [Rx] Omeprazole [PriLOSEC] 40 mg PO DAILY PRN #0 09/09/18 [Rx] Allergies/Adverse Reactions: Allergy/AdvReac Type Severity Reaction Status Date / Time nitrofurantoin Allergy Hives Verified 08/17/18 16:21 [From Macrobid] Date of admission: 09/08/18 16:37 Primary care physician: Darien Weathers M.D. Consults: 09/08/18 19:19 Consult to Speech Therapy [CONS] Routine Comment: Evaluate, develop and implement POC Reason for Consult: difficulty swallowing Call Completed: No - Constitutional Vitals: Temp Pulse Resp BP Pulse Ox 97.6 F 83 15 137/91 97 09/09/18 07:03 09/09/18 07:03 09/09/18 07:03 09/09/18 07:03 09/09/18 07:03 - Patient Status Disposition: Transfer SNF Condition: Good - Discharge Instructions Forms: ED Satisfaction Letter, Work/School Release - Diet and Activity Activity: resume usual activities as tolerated Diet: advance to your usual diet
--- NOTE | 2018-09-09 08:36 | Physician Discharge Referral ---
ExtendedCare Referral Info Transfer To: [facility] Provider in Charge: Jasiel Provider in Charge after Transfer: PCP (Jasiel) - Diagnosis (1) Chest pain Priority: Primary Status: Resolved (2) Anxiety Priority: Secondary Status: Acute (3) Dementia Priority: Secondary Status: Chronic (4) Hypertension Priority: Secondary Status: Chronic (5) Low vitamin B12 level Priority: Secondary Status: Chronic Prognosis: Fair Aware of Diagnosis: Patient Aware of Prognosis: Patient - Transfer Medications Home Medications: Aspirin [Lo-Dose Aspirin EC] 81 mg PO DAILY 07/27/18 [History] LORazepam [Ativan] 0.5 mg PO BID 30 Days #60 tablet 07/31/18 [Rx] Metoprolol XL (24 HR) Succ [Toprol Xl] 50 mg PO DAILY tab.er.24h 07/31/18 [Rx] Metoprolol Succinate 100 mg PO DAILY #30 tab.er.24h 08/17/18 [Rx] Cyanocobalamin/Folic Acid [Vitamin F24-Ptocw Acid Tablet] 09/08/18 [History] Sertraline [Zoloft] 25 mg PO DAILY 09/08/18 [History] Donepezil [Aricept] 10 mg PO HS #0 09/09/18 [Rx] Memantine [Namenda] 5 mg PO BID #0 09/09/18 [Rx] Omeprazole [PriLOSEC] 40 mg PO DAILY PRN #0 09/09/18 [Rx] Allergies/Adverse Reactions: Allergy/AdvReac Type Severity Reaction Status Date / Time nitrofurantoin Allergy Hives Verified 08/17/18 16:21 [From Macrobid] - Respiratory Orders Smoking Cessation: Smoking cessation has been advised. For more information, call the [place] Tobacco Quit Line at 8-585-QLQE-NOW. - Advance Directives Code Status: Full Code - Rehabiliation Orders Rehab Potential: Fair - Diet Orders Cardiac CERTIFICATION: I certify that the transfer of the above named patient to an Extended Care Facility is necessary for the continuing treatment of the diagnosis listed. The above information is true and accurate reflection of patient's current condition. Confidential - Redisclosure prohibited without a patient's written consent.
[2018-09-09] MEDS ORDERED: Cyanocobalamin (B-12) 1,000 MCG TABLET PO SCH (09:00)
[2018-09-09] MEDS ORDERED: Metoprolol XL (24 HR) Succ 50 MG TAB.ER.24H PO SCH (09:00)
--- NOTE | 2018-09-10 22:14 | Electrocardiograph Report ---
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
== END 2018-09-09 09:41 ==
LOC: EMEROOPIK 14:28 → INPPIK 14:28
PROVIDERS: ADMIT Internal Medicine; ATTEND Internal Medicine